=== PATIENT | female | born 1955 | race Caucasian/White ===

== ENCOUNTER → 2018-08-27 | Outpatient (CLI) | payer OTHER ==
--- NOTE | 2018-08-27 16:44 | PCVCIMAG ---
APPROVED REPORT Study performed: 08/27/2018 14:08:12 Exam: Transesophageal Echocardiogram Indication: Abn EKG, Hypertension, Dyspnea Patient Location: Echo lab Stress Nurse: Elodia Aldana RN Room #: 2 Status: routine Ht: 5 ft 7 in HR: 94 bpm BP: 142/78 mmHg Rhythm: NSR Medical History Medical History: HTN Cardiac Risk Factors: HTN Previous Cardiac Procedures: none Pretest Chest Pain Characteristics: No chest pain Exercise History: Physically active Procedure The patient underwent an Exercise Stress Test using the Philipp Protocol. Blood pressure, heart rate, and EKG were monitored. An Echocardiogram was performed by electronic warfare technician in four stages in quad fashion. At peak stress, four selected images were obtained and placed side by side with resting images for comparison. Stress Test Details Stress Test: Exercise stress testing was performed using a Philipp protocol. HR Resting HR: 94 bpmMax Heart Rate (APMHR): 156 bpm Max HR Achieved: 165 bpmTarget HR (85% APMHR): 132 bpm % of APMHR: 105 Recovery HR: 98 bpm HR response to stress: Normal HR response to stress BP Resting BP: 142/78 mmHg Max BP: 176/88 mmHg Recovery BP: 138/78 mmHg BP response to stress: Normal blood pressure response to stress. ECG Resting ECG: Sinus Rhythm, NSSTT changes Stress ECG: Sinus Rhythm ST Change: Non-ischemic Maximum ST Deviation: 0 mm Arrhythmia: occasional PVCs Recovery ECG: Sinus Rhythm Recovery ST Change: Non-ischemic Recovery ST Deviation: 0 mm Recovery Arrhythmia: None Clinical Reason for Termination: Maximal effort Stress Symptoms: fatigue Exercise duration: 9 min 10 sec Highest Stage Achieved: Stage 4: 4.2 mph at 16% grade. Exercise capacity: 10.5 METs Overall Exercise Capacity for Age: Good Scale: Active Angina Score: None No complications. Stress ECG Conclusion The patient exercised according to the PHILIPP protocol for 9:10 mins; achieving a work level of 10.5 METS. The resting heart rate of 94 bpm meghan to a maximum heart rate of 165 bpm. This value represents 105% of the maximal, age-predicted heart rate. The resting blood pressure of 142/78 mmHg, meghan to a maximum blood pressure of 176/88 mmHg. The exercise test was stopped due to fatigue. Hernadez Treadmill Score is 9.0 which is Low risk. Pre-Stress Echo The resting Echocardiogram showed normal left ventricular contractility with an estimated Ejection Fraction of about 55-60%. Normal wall motion in all segments on baseline images. Post-Stress Echo The stress Echocardiogram showed normal left ventricular contractility with an estimated Ejection Fraction of about 65-70%. Normal augmentation of wall motion in all segments on post stress images. Clinical No clinical or ECG evidence for ischemia. Conclusion Clinical Response: Non-ischemic Exercise Capacity: Average Stress ECG Response: Non-ischemic Stress Echo Images: Non-ischemic No clinical, EKG or echocardiographic evidence for ischemia. No echocardiographic evidence for exercise induced ischemia. Normal stress echocardiogram with maximal exercise stress. Mild aortic regurgitation. Trileaflet aortic valve, mild sclerosis. No prior study available for comparison. <Conclusion> No clinical, EKG or echocardiographic evidence for ischemia. No echocardiographic evidence for exercise induced ischemia. Normal stress echocardiogram with maximal exercise stress. Mild aortic regurgitation. Trileaflet aortic valve, mild sclerosis.
== END | disposition home or self-care (01) ==
LOC: PCVCIMAG 14:22
PROVIDERS: ATTEND Internal Medicine
DX: I10 Essential (primary) hypertension (principal); R94.31 Abnormal electrocardiogram [ECG] [EKG]; R06.09 Other forms of dyspnea; E78.5 Hyperlipidemia, unspecified
CPT/HCPCS: 93325; 93351